=== PATIENT | female | born 1960 | race Caucasian/White ===

== ENCOUNTER 2019-12-28 08:29 | Day surgery (SDC) | payer OTHER, SELFPAY ==
--- NOTE | 2019-12-27 09:51 | P.CONAN_ITS ---
Documented by User: Silvia Eagle 12/27/19 09:51 HPI - Anesthesia Eval Consult details Narrative: 59yo F for [facility] and [facility] Past Medical History Medical History Perrin's esophagus Degenerative joint disease History of posttraumatic stress disorder (PTSD) Hx of esophageal spasm Hx of hidradenitis suppurativa Hx of syncope Surgical History Surgical History History of carpal tunnel release History of esophagogastroduodenoscopy (EGD) History of laminectomy Hx of colonoscopy Hx of shoulder surgery Social History Social History Smoking Status: Current every day smoker Packs Per Day: 0.5 Cigarettes Per Day: 10.0 Smoked in Last 30 Days: Yes Patient Interested in Nicotine Replacement: No Patient Given Instructions on How to Stop Smoking: No Second Hand Smoke Exposure: No Use of substances other than those prescribed or required for medical reasons: No Advance Directives: No Advance Directives Information Provided: Yes Advance Directives on File: No Meds Allergies Allergy/AdvReac Type Severity Reaction Status Date / Time Sulfa (Sulfonamide Allergy Unknown ITCHING Verified 12/28/19 08:39 Antibiotics) [SULFA (SULFONAMIDE ANTIBIOTICS)] Home Medications Medication Instructions Recorded Confirmed Type Arnuity Ellipta 12/24/19 History Cymbalta 12/24/19 History Flonase 12/24/19 History ProAir HFA 12/24/19 History Vitamin C 12/24/19 12/24/19 History atorvastatin 12/24/19 History duloxetine 12/24/19 History fluorouracil 12/24/19 History fluticasone propionate 12/24/19 History gabapentin 12/24/19 History hydroxyzine pamoate 12/24/19 History loratadine 12/24/19 History magnesium 12/24/19 History meloxicam 12/24/19 History multivitamin 12/24/19 History mupirocin 12/24/19 History tizanidine 12/24/19 History trazodone 12/24/19 History vitamin B complex 12/24/19 History Exam Exam Date and Time: December 27, 2019 0951 Assessment and Plan Assessment Anesthesia Assessment: Chart Reviewed Documented by User: Violet Sanchez 12/28/19 09:46 PMFSH Past Medical History Medical History Perrin's esophagus Degenerative joint disease History of posttraumatic stress disorder (PTSD) Hx of esophageal spasm Hx of hidradenitis suppurativa Hx of syncope Surgical History Surgical History History of carpal tunnel release History of esophagogastroduodenoscopy (EGD) History of laminectomy Hx of colonoscopy Hx of shoulder surgery Social History Social History Smoking Status: Current every day smoker Packs Per Day: 0.5 Cigarettes Per Day: 10.0 Smoked in Last 30 Days: Yes Patient Interested in Nicotine Replacement: No Patient Given Instructions on How to Stop Smoking: No Second Hand Smoke Exposure: No Use of substances other than those prescribed or required for medical reasons: No Advance Directives: No Advance Directives Information Provided: Yes Advance Directives on File: No Meds Allergies Allergy/AdvReac Type Severity Reaction Status Date / Time Sulfa (Sulfonamide Allergy Unknown ITCHING Verified 12/28/19 08:39 Antibiotics) [SULFA (SULFONAMIDE ANTIBIOTICS)] Home Medications Medication Instructions Recorded Confirmed Type Arnuity Ellipta 12/24/19 History Cymbalta 12/24/19 History Flonase 12/24/19 History ProAir HFA 12/24/19 History Vitamin C 12/24/19 12/24/19 History atorvastatin 12/24/19 History duloxetine 12/24/19 History fluorouracil 12/24/19 History fluticasone propionate 12/24/19 History gabapentin 12/24/19 History hydroxyzine pamoate 12/24/19 History loratadine 12/24/19 History magnesium 12/24/19 History meloxicam 12/24/19 History multivitamin 12/24/19 History mupirocin 12/24/19 History tizanidine 12/24/19 History trazodone 12/24/19 History vitamin B complex 12/24/19 History Exam Airway Mallampati Class: II TM Dist: >3cm Loose/Missing/Broken Teeth: No Heart: RRR Lungs: CTA Assessment and Plan Assessment Anesthesia Assessment: Anesthesia Plan Discussed and Chart Reviewed Final Anesthetic Review NPO: Yes ASA Class: II Final Preanesthetic Review: Meds/Allgs Chart Reviewed, Consent Obtained/Reviewed and Anes Risks/Benef Reviewed Patient Risk: Intermediate Procedure Risk: Intermediate Anesthetic Plan Anesthetic Plan: MAC: Disposition: Standard PACU
[2019-12-27 16:29] VITALS: BMI 24.6
[2019-12-28 08:52] VITALS: BP 121/85; PULSE 103; RESP 16; TEMP 36.1; O2SAT 100
[2019-12-28] MEDS: Lactated Ringers 1,000 ML 100 ML IVCONT (08:58)
--- NOTE | 2019-12-28 09:20 | MHC.SHP ---
Pre-Procedural Eval Section A The patient is an INPATIENT: No Changes since office visit: No Cold of Flu in the past 2 weeks, No New Medical Problems, No Changes in Medication and No Patient answered all questions The History & Physical has been completed within 30 days and I have reviewed it.: Yes Section B Chief Complaint: Gerd, Change in bowel habit Allergies: Allergies Allergy/AdvReac Type Severity Reaction Status Date / Time Sulfa (Sulfonamide Allergy Unknown ITCHING Verified 12/28/19 08:39 Antibiotics) [SULFA (SULFONAMIDE ANTIBIOTICS)] Plan Patient has been examined and remains a candidate for the planned procedure
[2019-12-28 10:13] VITALS: BP 87/55; PULSE 79; RESP 16; TEMP 36.7; O2SAT 99
--- NOTE | 2019-12-28 10:14 | PM.OP ---
Brief Operative Note Date of procedure: 12/28/19 Pre-op diagnosis: gerd, change in bowels Post-op diagnosis: same (colon polyp) Procedure: EGD/Colon Surgeon: Werner Salas Anesthesia: MAC Estimated blood loss (mL): 5 Pathology: other (antral and egj biopsies, sigmoid biopsies, rectal polyp) Condition: stable Disposition: PACU
[2019-12-28 10:29] VITALS: BP 100/67; PULSE 76; RESP 18; TEMP 36.7; O2SAT 99
--- NOTE | 2019-12-28 11:07 | HO.POSTANES ---
Post Anesthesia Evaluation Post Anesthesia Evaluation Vital Signs: Vital Signs Temp Pulse Resp BP Pulse Ox 12/28/19 10:29 98.0 F 76 18 100/67 99 12/28/19 10:13 98.0 F 79 16 87/55 L 99 12/28/19 08:52 97.0 F 103 H 16 121/85 100 Anesthesia: Monitored Mental Status: Awake Pain Control: Satisfactory Nausea/Vomiting: None Hydration: Adequate Anesthesia-Related Issues: No Anes. Related Issues
--- NOTE | 2019-12-28 13:07 | OP_ITS ---
SURGEON: Werner Salas MD INDICATIONS: 1. Gastroesophageal reflux disease. 2. Colon cancer screening and diarrhea. PREOPERATIVE DIAGNOSIS: POSTOPERATIVE DIAGNOSIS: PROCEDURE PERFORMED: ESTIMATED BLOOD LOSS: COMPLICATIONS: ANESTHESIA: ASSISTANTS: SPECIMENS: PROCEDURES PERFORMED: 1. Upper endoscopy with biopsy. 2. Colonoscopy to the terminal ileum with biopsy. MEDICATIONS: Monitored anesthesia care. PROCEDURE DESCRIPTION: History and physical was performed. The risks and benefits of the procedure were explained to the patient. Informed consent was obtained. The patient was placed in the left lateral decubitus position. The Olympus video gastroscope was introduced into the esophagus, stomach, and duodenum. Examination was performed. The scope was removed. She was repositioned for colonoscopy. Digital rectal exam was performed and was found to be normal. The Olympus pediatric video colonoscope was introduced into the rectum and advanced to the cecum without difficulty. The cecum was identified by transillumination, palpation, and identification of ileocecal valve. Examination was performed and the scope was removed. She tolerated both procedures well and was returned to recovery area in stable condition. FINDINGS: UPPER ENDOSCOPY: Esophagus: The esophagus showed an irregular EG junction, but there was no evidence of esophagitis. Biopsies were obtained from the EG junction. Stomach: The stomach showed no evidence of masses, ulcers, or polyps. The antral biopsies were obtained to evaluate for H. pylori. Duodenum: The bulb and second portion were normal. COLONOSCOPY: The terminal ileum was normal. The visualized colonic mucosa was normal. There was mild sigmoid diverticulosis. The quality of the prep was good. Random sigmoid biopsies were obtained because of the patient's history of diarrhea and the rectum has a less than 5 mm sessile polyp that was removed with biopsy forceps. Retroflexed examination was normal. IMPRESSION: 1. Gastroesophageal reflux disease. 2. Colon polyp. RECOMMENDATION: Follow up the biopsy results. MD PAT Harvey/HELENA / [id number]
== END 2019-12-28 11:20 | disposition home or self-care (01) ==
PROVIDERS: Internal Medicine Gastroenterology; PCP Internal Medicine; Visit Provider Anesthesiology
PROC: (CPT 45380; principal; 2019-12-28 09:30)
DX: R19.4 Change in bowel habit (principal); Z80.0 Family history of malignant neoplasm of digestive organs; Z86.010 Personal history of colon polyps; K62.1 Rectal polyp; K57.30 Diverticulosis of large intestine without perforation or abscess without bleeding; K21.9 Gastro-esophageal reflux disease without esophagitis; Z87.19 Personal history of other diseases of the digestive system; Z87.01 Personal history of pneumonia (recurrent); F17.210 Nicotine dependence, cigarettes, uncomplicated; Z79.899 Other long term (current) drug therapy
CPT/HCPCS: 45380; 43239; 88305; 88342

== ENCOUNTER 2023-09-08 06:58 | Day surgery (SDC) | payer OTHER, SELFPAY ==
[2023-09-03 07:38] VITALS: BMI 28.5
[2023-09-08 07:12] VITALS: BMI 29.3
[2023-09-08 07:17] VITALS: BP 118/71; PULSE 83; RESP 18; TEMP 36.1; O2SAT 98
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
[2023-09-08] MEDS: Tetracaine HCl/PF 0.5% Oph Sol 4 ML DROPS 1 DROP EYE-RIGHT (07:37)
[2023-09-08] MEDS: Lactated Ringers 1,000 ML 50 ML IVCONT (07:37)
[2023-09-08] MEDS: Phenylephrine HCL 2.5% Oph SoL 2 ML BOTTLE 1 DROP EYE-RIGHT ×3 (07:37→07:43)
[2023-09-08] MEDS: Albuterol Sulfate (0.083%) 2.5 MG/3 ML VIAL.NEB INHALE (07:38)
[2023-09-08] MEDS: Ketorolac Tromethamine 0.5% Op 10 ML DROPS 1 DROP EYE-RIGHT ×3 (07:38→07:44)
[2023-09-08] MEDS: Tropicamide 1 % Ophth Sol 3 ML BTL 1 DROP EYE-RIGHT ×3 (07:38→07:44)
[2023-09-08 07:41] VITALS: PULSE 84; RESP 18; O2SAT 98
[2023-09-08] MEDS: Cyclopentolate 1 % Ophth Sol 2 ML DRPBTL 1 DROP EYE-RIGHT ×2 (07:42→07:43)
--- NOTE | 2023-09-08 08:24 | P.PCNO_ITS ---
Ophthalmology Procedure Procedure Date of Service: 09/08/23 Ophthalmology Viscoelastic: Healon Duet Dual Pack Pro Ophthalmology Lenses: IOL Acrysof MP - [id number] (15.5) Procedure Notes: PREOPERATIVE DIAGNOSIS: Decreased visual acuity right eye secondary to cataract POSTOPERATIVE DIAGNOSIS: Same PROCEDURE: Right cataract extraction with intraocular lens insertion SURGEON: Steven Hamilton M.D. ANESTHESIA: Topical/MAC ESTIMATED BLOOD LOSS: None COMPLICATIONS: None After obtaining informed consent, the patient was brought to the operating room suite and placed in the supine position. After adequate sedation per anesthesia, topical drops of Tetracaine were given to the right eye. The eye was then prepped and draped in the usual sterile fashion. The operating room microscope was then positioned over the operative eye and a lid speculum placed. A paracentesis was created. Viscoelastic was then instilled into the anterior chamber. A three plane incision was then created temporally, utilizing a 2.85 mm keratome. Capsulotomy forceps were then utilized to create a circular tear capsulotomy. Hydrodissection and hydrodelineation were carried out until adequate mobilization of the nucleus occurred. Phacoemulsification was then utilized to remove the dense central nu cleus followed by removal of the cortical material utilizing the automated aspiration irrigation unit. Viscoelastic was instilled into the posterior capsular bag followed by placement of a posterior chamber intraocular lens without difficulty. The residual Viscoelastic was then removed utilizing the automated IA machine. The wound was checked and found to be watertight. The patient tolerated the procedure well and the lid speculum was removed. Intracameral injection of Vigamox 0.1 mL followed by a subtenon injection of Kenalog-40 0.2 mL were administered. The patient will be seen in the a.m.
--- NOTE | 2023-09-08 08:24 | MHC.SHP ---
Pre-Procedural Eval Section A - 24 Hr Update-Section A only Date of Service: 09/08/23 The patient is an INPATIENT: No Changes since office visit: No Cold of Flu in the past 2 weeks, No New Medical Problems, No Changes in Medication and No Patient answered all questions The patient has been examined within 24 hours of the surgical procedure. The History & Physical has been completed within 30 days and I have reviewed it.: Yes Section B - Complete if H&P > 30 days Chief Complaint: Age-related nuclear cataract, right eye Allergies: Allergies Allergy/AdvReac Type Severity Reaction Status Date / Time Sulfa (Sulfonamide Allergy Unknown ITCHING Verified 09/08/23 07:09 Antibiotics) [SULFA (SULFONAMIDE ANTIBIOTICS)] trospium Allergy Blurry Verified 09/08/23 07:09 Vision Plan Diagnosis/Plan: Unchanged I have reviewed the history and physical and performed a pertinent physical examination on my patient. No changes have occurred unless specified. Time Spent With Patient Time: Total time managing care of this patient today ____ minutes.
[2023-09-08 08:46] VITALS: BP 127/75; PULSE 80; RESP 16; TEMP 36.1; O2SAT 95
== END 2023-09-08 08:59 | disposition home or self-care (01) ==
PROVIDERS: PCP Internal Medicine; Visit Provider Ophthalmology
PROC: (CPT 66985; principal; 2023-09-08 08:20)
DX: H25.11 Age-related nuclear cataract, right eye (principal); H52.4 Presbyopia; H35.361 Drusen (degenerative) of macula, right eye; H05.20 Unspecified exophthalmos; H04.123 Dry eye syndrome of bilateral lacrimal glands; H11.153 Pinguecula, bilateral; H43.393 Other vitreous opacities, bilateral; M79.7 Fibromyalgia; E78.00 Pure hypercholesterolemia, unspecified; Z79.51 Long term (current) use of inhaled steroids; Z79.899 Other long term (current) drug therapy; Z88.2 Allergy status to sulfonamides; F17.210 Nicotine dependence, cigarettes, uncomplicated
CPT/HCPCS: 66984; J2250; J3010; J3301; V2630

== ENCOUNTER 2023-09-22 07:08 | Day surgery (SDC) | payer OTHER, SELFPAY ==
[2023-09-03 08:09] VITALS: BMI 28.5
[2023-09-22 07:20] VITALS: BP 115/75; PULSE 97; RESP 18; TEMP 36.8; O2SAT 97
[2023-09-22] MEDS: Phenylephrine HCL 2.5% Oph SoL 2 ML BOTTLE 1 DROP EYE-LEFT ×3 (07:22→07:30)
[2023-09-22] MEDS: Tetracaine HCl/PF 0.5% Oph Sol 4 ML DROPS 1 DROP EYE-LEFT (07:22)
[2023-09-22] MEDS: Cyclopentolate 1 % Ophth Sol 2 ML DRPBTL 1 DROP EYE-LEFT ×3 (07:23→07:31)
[2023-09-22] MEDS: Tropicamide 1 % Ophth Sol 3 ML BTL 1 DROP EYE-LEFT ×3 (07:23→07:31)
[2023-09-22] MEDS: Ketorolac Tromethamine 0.5% Op 10 ML DROPS 1 DROP EYE-LEFT ×3 (07:23→07:31)
--- NOTE | 2023-09-22 07:26 | MHC.SHP ---
Pre-Procedural Eval Section A - 24 Hr Update-Section A only Date of Service: 09/22/23 The patient is an INPATIENT: No Changes since office visit: No Cold of Flu in the past 2 weeks, No New Medical Problems, No Changes in Medication and No Patient answered all questions The patient has been examined within 24 hours of the surgical procedure. The History & Physical has been completed within 30 days and I have reviewed it.: Yes Section B - Complete if H&P > 30 days Chief Complaint: Age-related nuclear cataract, left eye Allergies: Allergies Allergy/AdvReac Type Severity Reaction Status Date / Time Sulfa (Sulfonamide Allergy Unknown ITCHING Verified 09/08/23 07:09 Antibiotics) [SULFA (SULFONAMIDE ANTIBIOTICS)] trospium Allergy Blurry Verified 09/08/23 07:09 Vision Plan Diagnosis/Plan: Unchanged I have reviewed the history and physical and performed a pertinent physical examination on my patient. No changes have occurred unless specified. Time Spent With Patient Time: Total time managing care of this patient today ____ minutes.
[2023-09-22] MEDS: Lactated Ringers 500 ML 50 ML IV (07:44)
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
--- NOTE | 2023-09-22 08:21 | HO.PNOPHT ---
Ophthalmology Procedure Procedure Date of Service: 09/22/23 Ophthalmology Viscoelastic: Healon Duet Dual Pack Pro Ophthalmology Lenses: IOL Acrysof MP - [id number] (16.5) Procedure Notes: PREOPERATIVE DIAGNOSIS: Decreased visual acuity left eye secondary to cataract POSTOPERATIVE DIAGNOSIS: Same PROCEDURE: Left cataract extraction with intraocular lens insertion SURGEON: Steven Hamilton M.D. ANESTHESIA: Topical/MAC ESTIMATED BLOOD LOSS: None COMPLICATIONS: None After obtaining informed consent, the patient was brought to the operation room suite and placed in the supine position. After adequate sedation per anesthesia, topical drops of Tetracaine were given to the left eye. The eye was then prepped and draped in the usual sterile fashion. The operating room microscope was then positioned over the operative eye and a lid speculum placed. A paracentesis was created. Viscoelastic was then instilled into the anterior chamber. A three plane incision was then created temporally, utilizing a 2.85 mm keratome. Capsulotomy forceps were then utilized to create a circular tear capsulotomy. Hydrodissection and hydrodelineation were carried out until adequate mobilization of the nucleus occurred. Phacoemulsification was then utilized to remove the dense central nucleus followed by removal of the cortical material utilizing the automated aspiration irrigation unit. Viscoat elastic was instilled into the posterior capsular bag followed by placement of a posterior chamber intraocular lens without difficulty. The residual Viscoat elastic was then removed utilizing the automated IA machine. The wound was check and found to be watertight. The patient tolerated the procedure well and the lid speculum was removed. Intracameral injection of Vigamox 0.1 mL followed by a subtenon injection of Kenalog-40 0.2 mL were administered. The patient will be seen in the a.m.
[2023-09-22 08:45] VITALS: BP 132/75; PULSE 88; RESP 18; TEMP 36.1; O2SAT 97
== END 2023-09-22 09:05 | disposition home or self-care (01) ==
PROVIDERS: PCP Internal Medicine; Visit Provider Ophthalmology
PROC: (CPT 66985; principal; 2023-09-22 07:30)
DX: H25.12 Age-related nuclear cataract, left eye (principal); H52.4 Presbyopia; H11.153 Pinguecula, bilateral; H05.20 Unspecified exophthalmos; H43.393 Other vitreous opacities, bilateral; H04.123 Dry eye syndrome of bilateral lacrimal glands; M79.7 Fibromyalgia; E78.00 Pure hypercholesterolemia, unspecified; J45.30 Mild persistent asthma, uncomplicated; B00.9 Herpesviral infection, unspecified; F17.210 Nicotine dependence, cigarettes, uncomplicated; F14.11 Cocaine abuse, in remission; Z79.51 Long term (current) use of inhaled steroids; Z79.899 Other long term (current) drug therapy; Z88.2 Allergy status to sulfonamides
CPT/HCPCS: 66984; J2250; J3010; J3301; V2630

== ENCOUNTER 2024-10-20 11:58 | Day surgery (SDC) | payer MEDICARE, MEDICAID, SELFPAY ==
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
--- OUTSIDE RECORDS SUMMARY | 2024-10-13 10:59 | XMS_ITS | Clinical Summary ---
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 [address] [place] [address], * Cervical Cancer Screening: HPV (03/05/2021) [facility] Cervical Cancer Screening: HPV Negative, Abstracted Historical Provider HEALTH MAINTENANCE Final Result * Hepatitis C Screening (06/10/2013) [facility] Hepatitis C Screening Abstracted [facility] Provider HEALTH MAINTENANCE Final Result * Colonoscopy (09/08/2012) [facility] Colonoscopy No Interpretation , Abstracted Anatomical Region Laterality Modality Other Historical Provider HEALTH MAINTENANCE Final Result from Last 3 Months or Most Recently Relevant to Health Maintenance Insurance MEDICARE MEDICAID [place] [employer] Care Teams Linen Clerk Relationship Specialty Start Date End Date Jared Pulido MD [address] [place] [id number] PCP - General 11/14/22
--- OUTSIDE RECORDS SUMMARY | 2024-10-13 10:59 | XMS_ITS | Clinical Summary ---
Author Organization [employer] Address [address] [place] [address] Care Team Providers Care Director Sports Name Role Phone Unavailable Primary Care Provider Unavailabl e Social History Tobacco Use Types Packs/Day Years Used Date Smoking Tobacco: Never Assessed Comments Unknown Sex and Gender Information Value Date Recorded Sex Assigned at Female 12/31/2021 10:31 AM EDT Legal Sex Female 10:31 AM EDT Gender Identity Not on file Sexual Orientation Not on file Plan of Treatment Health Maintenance Due Date Last Done Comments CT Colonography 1959 Colonoscopy 1959 Colorectal Cancer Screening 1959 Depression Screening 1959 FIT DNA/Cologuard 1959 FIT 1959 FOBT 1959 Sigmoidoscopy 1959 Alcohol/Substance Use Screening 1971 Tobacco Screening 1971 DTaP/Tdap/Td Vaccines (1 - Tdap) 06/13/1978 Pap Smear 06/13/1980 Cervical Cancer Screening 06/13/1989 HPV/Cotest 06/13/1989 Mammogram 1999 Pneumococcal Vaccine: 50+ Ye ars (1 of 1 - PCV) 06/13/2009 Zoster Vaccines (1 of 2) 06/13/2009 COVID-19 Vaccine ( - 2023-2 5 season) 2023 Influenza Vaccine (#1) 2024 RSV Patients and Pa tients Aged 60 years or older (1 - 1-dose 75+ series) 06/13/2034 HIB Vaccines Aged Out No longer eligi [...] patient's age to complete this topic Meningococcal Vaccine Aged Out No geraldo may eligible based on patient's age to complete this topic RSV under 20 months Aged Out No longe r eligible based on patient's age to complete this topic Rotavirus Vaccines Aged Out No longer eligible based on patient's age to complete this topic
--- OUTSIDE RECORDS SUMMARY | 2024-10-13 10:59 | XMS_ITS ---
Author Name [facility] Organization Unknown Care Team Organization Name Specialty Phone Email Start Date End Da te [facility] Linda Cardenas Primary [facility] 01/08/2022 4
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
[2024-10-20 12:26] VITALS: BP 129/77; PULSE 92; RESP 14; TEMP 36.6; O2SAT 100; BMI 28.0
[2024-10-20] MEDS: Lactated Ringers 1,000 ML 100 ML IVCONT (12:37)
--- NOTE | 2024-10-20 13:30 | MHC.SHP ---
Pre-Procedural Eval Section A - 24 Hr Update-Section A only Date of Service: 10/20/24 The patient is an INPATIENT: No Changes since office visit: No Cold of Flu in the past 2 weeks, No New Medical Problems, No Changes in Medication and No Patient answered all questions The patient has been examined within 24 hours of the surgical procedure. The History & Physical has been completed within 30 days and I have reviewed it.: Yes Section B - Complete if H&P > 30 days Chief Complaint: Perrin's esophagus without dysplasia,screening Allergies: Allergies Allergy/AdvReac Type Severity Reaction Status Date / Time Sulfa (Sulfonamide Allergy Unknown ITCHING Verified 10/20/24 12:17 Antibiotics) (SULFA (SULFONAMIDE ANTIBIOTICS)) trospium Allergy Blurry Verified 10/20/24 12:17 Vision Plan I have reviewed the history and physical and performed a pertinent physical examination on my patient. No changes have occurred unless specified. Time Spent With Patient Time: Total time managing care of this patient today ____ minutes.
[2024-10-20 14:27] VITALS: BP 138/76; PULSE 76; RESP 16; TEMP 36.8; O2SAT 98
--- NOTE | 2024-10-20 14:27 | P.BOP_ITS ---
Brief Operative Note Date of Service: 10/20/24 Pre-op diagnosis: screening Barretts Post-op diagnosis: same Procedure: egd colon Surgeon: Werner Salas MD Was an Senior Accounting Specialist used for this Procedure?: No Estimated blood loss (mL): 2 Pathology: none sent Condition: stable Disposition: PACU
[2024-10-20 14:42] VITALS: BP 140/72; PULSE 75; RESP 17; TEMP 36.8; O2SAT 98
--- NOTE | 2024-10-21 01:10 | OP_ITS ---
DATE OF SERVICE: 10/20/2024 SURGEON: Werner Salas MD INDICATIONS: 1. Perrin esophagus. 2. Colon cancer screening. PREOPERATIVE DIAGNOSIS: POSTOPERATIVE DIAGNOSIS: PROCEDURE PERFORMED: Upper endoscopy with biopsy, colonoscopy to the terminal ileum with snare polypectomy. ESTIMATED BLOOD LOSS: COMPLICATIONS: ANESTHESIA: Monitored anesthesia care. ASSISTANTS: SPECIMENS: DESCRIPTION OF PROCEDURE: A history and physical were performed. The risks and benefits of the procedure were explained to the patient, and informed consent was obtained. The patient was placed in the left lateral decubitus position. The Olympus video gastroscope was introduced into the esophagus, stomach, and duodenum. Examination was performed. The scope was removed. She was repositioned for colonoscopy. A digital rectal exam was performed, and was found to be normal. The Olympus pediatric video colonoscope was introduced into the rectum and advanced to the cecum. The cecum was identified by transillumination, palpation, and identification of ileocecal valve. Examination was performed. The scope was removed. She tolerated both procedures well and was returned to the recovery area in stable condition. FINDINGS: Upper endoscopy: 1. Esophagus: The esophagus showed an irregular EG junction. This was biopsied. There were no raised lesions or ulcerated areas. 2. Stomach: The stomach showed no evidence of masses, ulcers, or polyps. 3. Duodenum: The bulb and 2nd portion were normal. Colonoscopy: The terminal ileum was examined and appeared normal. The visualized colonic mucosa was normal. The quality of the prep was good. Multiple colonic polyps were identified. These were removed using a hot snare. These were located at the cecum, 45 cm and 35 cm. There was mild diverticulosis. Retroflexed examination showed some small internal hemorrhoids. The quality of the prep was good. IMPRESSION: 1. Perrin esophagus. 2. Colon polyps. RECOMMENDATION: Follow up the biopsy results. MD PAT Harvey/HELENA / [phone]
== END 2024-10-20 15:08 | disposition home or self-care (01) ==
PROVIDERS: PCP Internal Medicine; Visit Provider Internal Medicine Gastroenterology
PROC: (CPT 45385; principal; 2024-10-20 13:00)
DX: Z12.11 Encounter for screening for malignant neoplasm of colon (principal); D12.0 Benign neoplasm of cecum; D12.5 Benign neoplasm of sigmoid colon; K57.30 Diverticulosis of large intestine without perforation or abscess without bleeding; K64.8 Other hemorrhoids; Z80.0 Family history of malignant neoplasm of digestive organs; K22.70 Barrett's esophagus without dysplasia; K22.89 Other specified disease of esophagus; F17.210 Nicotine dependence, cigarettes, uncomplicated; J45.909 Unspecified asthma, uncomplicated; E78.5 Hyperlipidemia, unspecified; Z79.02 Long term (current) use of antithrombotics/antiplatelets; Z79.899 Other long term (current) drug therapy
CPT/HCPCS: 45385; 43239; 88305; 88313; 88342; J2003; J2704; J3010

== ENCOUNTER 2024-10-21 21:52 | Inpatient (IN) | payer MEDICARE, MEDICAID, SELFPAY ==
--- NOTE | ~2024-10-21 | CT_ITS ---
CLINICAL HISTORY: lower abd pain, GIB s p colonoscopy yesterday CT angiography abdomen and pelvis. 3D Postprocessing. Comparison: None provided Findings: There is minimal bibasilar atelectasis. There are several tiny hepatic cysts. The gallbladder, pancreas, spleen, and adrenal glands are unremarkable. There are a few small renal cysts. Kidneys are otherwise unremarkable. There is no evidence of active GI bleeding. There is diverticulosis in the left hemicolon. The appendix is normal. Stomach and small bowel are unremarkable. There is no free fluid or free air. The aorta is normal in diameter and patent without stenosis. Aortic branch vessels are patent without stenosis. There are no enlarged lymph nodes. There is a calcified degenerated subserosal fibroid. The bladder is unremarkable. There are degenerative changes in the lumbar spine. There is no fracture or suspicious lytic or sclerotic lesion. IMPRESSION: 1. No evidence of active GI bleeding. 2. Colonic diverticulosis. This document has been electronically signed by: Hilario Guevara MD on 10/22/2024 01:01:56
[2024-10-21 21:58] VITALS: BP 136/95; PULSE 98; RESP 20; TEMP 36.9; O2SAT 100; BMI 28.0
--- OUTSIDE RECORDS SUMMARY | 2024-10-21 22:33 | XMS_ITS | Clinical Summary ---
Author Organization [facility] Address [address] [place] [address] Phone Care Team Providers Care Network Communications Engineer Name Role Phone Jared Pulido MD Primary Care Provider Allergies Active Allergy Reactions Criticality Noted Date [...] Episode of recurrent major d epressive disorder (CMS/[facility] V24) 05/29/2020 Microscopic hematuria 06/25/2017 Mild persistent asthma without complication 11/02 Mixed hyperlipidemia 08/11/2013 Tubular adenoma of colon 08/11/2013 Overview (03/02/2024): Follows with Dr Dominguez-had colonsocopy inJuly 2012 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 Encounters Date Type Department Care Team Description 10/06/2024 10:00 AM EDT Office Visit Adult Medicine [address] [phone] Jared Pulido MD Atypical mole (Primary Dx); Fibromyalgia; Chronic left-sided low back pain with left-sided sciatica; Perrin's esophagus without dysplasia; Tubular adenoma of colon; Mild persistent asthma without complication; Mixed hyperlipidemia 10/05/2024 8:49 AM EDT - 10/05/2024 11:59 PM EDT Hospital Encounter [facility] CT Scan [address] [place] [address] Encounter for screening for malignant neoplasm of respiratory organs; Nicotine dependence, cigarettes, uncomplicated Discharge Disposition: Home or Self Care 09/15/2024 Telephone Adult Medicine [facility] [address] [place] [phone] Jared Pulido MD Immunizations 09/10/2024 Telephone Lung Screening Program - [place] [address] [facility] [address] [place] [address] Salina Johnson [place] Appointment (1st [...] COMMENT: right hand done SHOULDER SURGERY PROCEDURE: [facility] UNLISTED PROCEDURE SHOULDER; COMMENT: calcified bursa with [...] phagus; COMMENT: follows with Dr Salas in [place] Fibromyalgia DX:Fibromyalgia Hiatal hernia DX:Hiatal hernia H/O hidradenitis suppurativa DX: H/O hidradenitis suppurativa; COMMENT: has had surgeries for hidradenitis in the axilla and groins PTSD (post-traumatic stress disorder) DX:PTSD (post-traumatic stress disorder) Major depression DX:Major depres elizabeth; COMMENT: follows with a psychiatrist Dr dre Hicks, at [facility] Anxiety DX:Anxiety [...] Maternal Grandmother Hypertension Mother CHF,kidney canc er, [place]- in her 75 Rheum arthritis Mother's side [...] care for your loved ones. For example, childcare director or elderly care for an older adult? [...] 9:15 AM EST Office Visit Adult Medicine [address] [phone] Jared Pulido MD [address] [place] [phone] Health Maintenance Due Date Last Done Comments [...] malignancy and prevalence can be found at: [employer] Committee on Lung-RADS?. Lung- RADS Assessment Categories 2021. Available at [email or web address]. -------- FINAL REPORT -------- Dictated By: Andie Cr Dictated Date: 10/07/2024 16:43 ET Assigned Physician: Andie Cr Reviewed and Electronically Signed By: Andie Cr Signed Date: 10/07/2024 16:56 ET Workstation ID: [id number] Transcribed By: Self Edit Transcribed Date: 10/07/2024 [...] of malignancy andprevalence can be found at: [employer] Committee onLung-RADS?. Lung-RADS Assessment Categories 2021. Available [email or web address]. -------- FINAL REPORT -------- Dictated By: Andie Cr Dictated Date: 10/07/2024 16:43 ET Assigned Physician: Andie Cr Reviewed and Electronically Signed By: Andie Cr Signed Date: 10/07/2024 16:56 ET Workstation ID: [id number] Transcribed By: Self Edit Transcribed Date: 10/07/2024 16:46 ET us Aleksey Delgado MD IMG CT PROCEDURES Final Result * Interferon gamma interpretation (09/16/2024 10:15 AM EDT) Quantiferon Plus Interpretation Negative Negative LAB CHEMISTRY METHOD 09/17/2024 10:27 AM EDT [facility] Blood Venous blood specimen / Unknown Venipuncture / Unknown 09/16/2024 10:15 AM EDT 09/16/2024 10:15 AM EDT us Jared Pulido MD LAB BLOOD ORDERABLES Final Result [facility] [address] [place] [address], [place] [phone] * Interferon gamma antigen 2 (09/16/2024 10:15 AM EDT) Blood Venous blood specimen / Unknown Venipuncture / Unknown 09/16/2024 10:15 AM EDT 09/16/2024 10:15 AM EDT Jared Pulido MD LAB BLOOD ORDERABLES Final Result [facility] [address] [place] [address], * Interferon gamma antigen 1 (09/16/2024 10:15 AM EDT) Blood Venous blood specimen / Unknown Venipuncture / Unknown 09/16/2024 10:15 AM EDT 09/16/2024 10:15 AM EDT Jared Pulido MD LAB BLOOD ORDERABLES Final Result [facility] [address] [place] [address], * Interferon gamma mitogen (09/16/2024 10:15 AM EDT) Blood Venous blood specimen / Unknown Venipuncture / Unknown 09/16/2024 10:15 AM EDT 09/16/2024 10:15 AM EDT Jared Pulido MD LAB BLOOD ORDERABLES Final Result [facility] [address] [place] [address], * Interferon gamma NIL (09/16/2024 10:15 AM EDT) Blood Venous blood specimen / Unknown Venipuncture / Unknown 09/16/2024 10:15 AM EDT 09/16/2024 10:15 AM EDT us Jared Pulido MD LAB BLOOD ORDERABLES Final Result [facility] [address] [place] [address], [place] [phone] * MG Mammo Digital Screening w Viktor bilat (05/31/2024 7:25 PM EDT) Anatomical Region Laterality Modality Breast Bilateral Mammography 06/01/2024 12:5 1 PM EDT Impressions 06/01/2024 12:55 PM EDT No mammographic evidence for malignancy. BI-RADS CATEGORY: 1 - NEGATIVE RECOMMENDATION: Screening bilateral mammogram is recommended in 1 year. Mammo Location: [facility], [address] [place] [address], [phone], . -------- FINAL REPORT -------- Dictated By: Alem Lamb Dictated Date: 06/01/2024 12:51 ET Assigned Physician: Alem Lamb Reviewed and Electronically Signed By: Alem Lamb Signed Date: 06/01/2024 12:55 ET Workstation ID: [id number] Transcribed By: Self Edit Transcribed Date: 06/01/2024 [...] is recommended in 1 year. Mammo Location: [facility], [address] [place] [address], [id number], . -------- FINAL REPORT -------- Dictated By: Alem Lamb Dictated Date: 06/01/2024 12:51 ET Assigned Physician: Alem Lamb Reviewed and Electronically Signed By: Alem Lamb Signed Date: 06/01/2024 12:55 ET Workstation ID: [id number] Transcribed By: Self Edit Transcribed Date: 06/01/2024 12:51 ET us Jared Pulido MD IMG BI PROCEDURES Final Res ult * (ABNORMAL) Lipid panel with reflex to direct LDL (05/26/2024 8:15 AM EDT) Cholesterol 284(H) 0 - 200 mg/dL LAB CHEMISTRY METHOD 05/26/2024 11:34 AM EDT [facility] Triglycerides 236(H) 0 - 150 mg/dL LAB CHEMISTRY METHOD 05/26/2024 11:34 AM EDT [facility] HDL 47 >=40 mg/dL LAB CHEMISTRY METHOD 05/26/2024 11:34 AM EDT [facility] LDL Calculated 190(H) 0 - 100 mg/dL LAB CHEMISTRY METHOD 05/26/2024 11:34 AM T [facility] VLDL Cholesterol Shashi 47.2 mg/dL LAB CHEMISTRY METHOD 05/26/2024 11:34 AM EDT [facility] Non HDL Chol. (LDL+VLDL) 237(H) <145 mg/dL LAB CHEMISTRY METHOD 05/26/2024 11:34 AM EDT [facility] Chol/HDL Ratio 6.0(H) 0.0 - 4.4 LAB CHEMISTRY METHOD 05/26/2024 11:34 AM EDT [facility] Blood Venous blood specimen / Unknown Venipuncture / Unknown 05/26/2024 8:15 AM EDT 05/26/2024 8:15 AM EDT Rita ARORA LAB BLOOD ORDERABLES Fin al Result [facility] [address] [place] [address], * Cervical Cancer Screening: HPV (03/05/2021) [facility] Cervical Cancer Screening: HPV Negative, Abstracted Historical Provider HEALTH MAINTENANCE Final Result * Hepatitis C Screening (06/10/2013) [facility] Hepatitis C Screening Abstracted [facility] Provider HEALTH MAINTENANCE Final Result * Colonoscopy (09/08/2012) [facility] Colonoscopy No Interpretation , Abstracted Anatomical Region Laterality Modality Other Historical Provider HEALTH MAINTENANCE Final Result from Last 3 Months or Most Recently Relevant to Health Maintenance Insurance MEDICARE MEDICAID [place] [employer] Care Teams Network Communications Engineer Relationship Specialty Start Date End Date Jared Pulido MD [address] [place] [id number] PCP - General 11/14/22
--- OUTSIDE RECORDS SUMMARY | 2024-10-21 22:33 | XMS_ITS | Clinical Summary ---
Author Organization [employer] Address [address] [place] [address] Care Team Providers Care Swamper Name Role Phone Unavailable Primary Care Provider [...]
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
[2024-10-21] MEDS: Lactated Ringers 1,000 ML 999 ML IV (23:04)
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
[2024-10-21 23:27] LABS: MANUAL DIFF FLAG NO
[2024-10-21 23:29] LABS: OBS Int Ctl Valid YES; OBS1 POSITIVE (NEGATIVE)
[2024-10-21 23:30] LABS: Hematocrit 34.8 % (37.0-47.0); Hemoglobin 12.0 g/dl (12.0-16.0); Imm Gran Abs Auto 0.04 X10*3/uL (0.00-0.03); Imm Gran Pct Auto 0.4 % (0.0-0.4); Lymphocytes Absolute Auto 3.1 X10*3/uL (1.2-4.9); Mean Corpuscular HGB Conc 34.5 g/dl (31.0-35.0); Mean Corpuscular Hemoglobin 32.1 pg (27.0-33.0); Mean Corpuscular Volume 93.0 fL (80.0-98.0); NRBC Abs Auto 0.000 X10*3/uL (0.0-0.012); NRBC Pct Auto 0.0 /100WBC (0.0-0.2); Platelet Count 314 X10*3/uL (160-400); Red Blood Count 3.74 X10*6/uL (4.20-5.50); White Blood Count 10.8 X10*3/uL (4.8-10.8)
[2024-10-21 23:44] LABS: Alanine Aminotransferase 19 U/L (0-31); Albumin Level 3.9 g/dL (3.5-5.0); Alkaline Phosphatase 82 U/L (39-117); Anion Gap 13 (12-20); Aspartate Amino Transferase 19 U/L (5-31); Blood Urea Nitrogen 15 mg/dL (9-16); Calcium 8.9 mg/dL (8.4-10.2); Carbon Dioxide 21 mmol/L (22-29); Chloride 112 mmol/L (96-108); Creatinine Clr Calc Pharmacy 68.3; Estimated Glomerular Filt Rate > 60; Potassium 3.8 mmol/L (3.3-5.1); Sodium 142 mmol/L (135-145); Total Protein 5.7 g/dL (6.5-8.0)
[2024-10-22] VITALS (7 sets, daily range): BP systolic 123–150; BP diastolic 62–78; PULSE 71–80; RESP 14–18; TEMP 36.4–37; O2SAT 95–99; BMI 29.3
[2024-10-22] MEDS: iohexoL 350 MG/ML 100 ML INFUS..BTL 85 ML IV (00:32)
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
[2024-10-22 05:55] LABS: MANUAL DIFF FLAG NO
[2024-10-22 05:58] LABS: Hematocrit 37.3 % (37.0-47.0); Hemoglobin 12.6 g/dl (12.0-16.0); Imm Gran Abs Auto 0.03 X10*3/uL (0.00-0.03); Imm Gran Pct Auto 0.3 % (0.0-0.4); Lymphocytes Absolute Auto 2.8 X10*3/uL (1.2-4.9); Mean Corpuscular HGB Conc 33.8 g/dl (31.0-35.0); Mean Corpuscular Hemoglobin 31.6 pg (27.0-33.0); Mean Corpuscular Volume 93.5 fL (80.0-98.0); NRBC Abs Auto 0.000 X10*3/uL (0.0-0.012); NRBC Pct Auto 0.0 /100WBC (0.0-0.2); Platelet Count 300 X10*3/uL (160-400); Red Blood Count 3.99 X10*6/uL (4.20-5.50); White Blood Count 9.1 X10*3/uL (4.8-10.8)
[2024-10-22 06:11] LABS: Anion Gap 13 (12-20); Blood Urea Nitrogen 13 mg/dL (9-16); Calcium 8.8 mg/dL (8.4-10.2); Carbon Dioxide 23 mmol/L (22-29); Chloride 110 mmol/L (96-108); Creatinine Clr Calc Pharmacy 70.2; Estimated Glomerular Filt Rate > 60; Potassium 3.9 mmol/L (3.3-5.1); Sodium 142 mmol/L (135-145)
--- NOTE | 2024-10-22 08:45 | PHA.MEDREC ---
Addendum entered by Kayleigh Guan RPh 10/22/24 08:52: Reviewed by [facility] Original Note: Pharmacy Consult ? Medication Reconciliation Pharmacy has completed the medication reconciliation. Patient was able to confirm all of her medications. Patient states she is no longer taking Hydroxyzine 25 mg, Mupirocin oint, and Valacyclovir 500 mg. Patient last had her medications 10/19/24
--- NOTE | 2024-10-22 10:56 | MHC.CM.PN ---
IMM 10/22/24, Pt. lives alone, she does not use home health services. PCP is confirmed: Jared Pulido, HCP is her dtr or sister, copy requested. For DME, she has grab bars in the shower. She is able to arrange transportation home at [place], DCP: home, self care, CM to follow for DC needs.
[2024-10-22] MEDS: 0.9 % Sodium Chloride Flush 3 ML SYRINGE IVFLUSH ×3 (11:55→22:47)
--- NOTE | 2024-10-22 15:57 | P.PNIM_ITS ---
Subjective Subjective Date of Service: 10/22/24 Interval History: Patient complains that she has lower back pain, due to the position she is lying in. She endorses thirst and hunger, she is currently NPO. She has had no recurrent bleeding so far. Understands that we are closely monitoring her. Review of Systems Review of Systems: Yes all other systems are reviewed and are negative Physical Exam 2 Exam: Exam: General: A&O x3, oriented to time place person and situation, comfortable, no pain Cardiac: S1, S2 auscultated with no S3/4, no MRG. Well perfused. Respiratory: Normal breath sounds auscultated throughout all lung zones, without wheezing, rales. Normal rate. GI/ : No abdominal pain on palpation, no masses or distentions. MSK: Normal ambulation without pain at bony prominences or musculature Neurological: Normal neurological examination on overview, without obvious CN II-XII abnormalities. Vital Signs: Vital Signs: Last Vital Signs Temp 98.4 F 10/22/24 14:23 Pulse 74 10/22/24 14:23 Resp 18 10/22/24 14:23 BP 142/78 H 10/22/24 14:23 Pulse Ox 99 10/22/24 14:23 O2 Del Method Room Air 10/22/24 14:23 BMI result Body Mass Index 28.0 Objective Data Active Medications Acetaminophen (Acetaminophen 325 Mg Tablet) 650 mg PO Q6H PRN PRN Reason: Pain, Mild 1-3,fever,headache Last Admin: 10/22/24 14:29 Dose: 650 mg Documented By: SRAVANI Albuterol/Ipratropium (Albuterol/Iprat 2.5/0.5mg 3 Ml Ampul.Neb) 3 ml INHALE Q4H PRN PRN Reason: Shortness of Breath/Wheezing Calcium Carbonate (Calcium Carbonate 750 Mg Tab.Chew) 750 mg PO Q4H PRN PRN Reason: Heartburn Magnesium Hydroxide (Milk Of Magnesia 30 Ml Oral.Susp) 30 ml PO DAILY PRN PRN Reason: Constipation Melatonin (Melatonin 3 Mg Tablet) 6 mg PO BEDTIME PRN PRN Reason: Insomnia Ondansetron HCl (Ondansetron Hcl 4 Mg/2 Ml Vial) 4 mg IVPUSH Q8H PRN PRN Reason: Nausea and Vomiting Last Admin: 10/22/24 14:27 Dose: 4 mg Documented By: SRAVANI Pantoprazole Sodium (Pantoprazole Sodium 40 Mg/10 Ml Vial) 40 mg IVPUSH BID@0630,1630 [facility] Last Admin: 10/22/24 06:30 Dose: 40 mg Documented By: PRICILLA Sodium Chloride (0.9 % Sodium Chloride Flush 3 Ml Syringe) 3 ml IVFLUSH QSHIFT [facility] Last Admin: 10/22/24 11:55 Dose: 3 ml Documented By: ELIZ-THOMAS Labs 10/22/24 05:32 10/22/24 05:32 Labs: Laboratory Results - last 24 hr 10/21/24 10/21/24 10/22/24 23:17 23:20 05:32 MCV 93.0 93.5 MCH 32.1 31.6 MCHC 34.5 33.8 RDW 12.9 12.8 Plt Count 314 300 MPV 9.0 L 9.1 L Immature Gran % (Auto) 0.4 0.3 Neut % (Auto) 62.6 59.8 Lymph % (Auto) 28.7 30.9 [place] % (Auto) 5.9 6.4 Eos % (Auto) 2.1 2.3 Baso % (Auto) 0.3 0.3 Lymph # (Auto) 3.1 2.8 [place] # (Auto) 0.6 0.6 Eos # (Auto) 0.2 0.2 Baso # (Auto) 0.0 0.0 Abs Immat Gran (auto) 0.04 H 0.03 Absolute Neuts (auto) 6.8 5.4 Absolute Nucleated RBC 0.000 0.000 Nucleated RBC % (auto) 0.0 0.0 Anion Gap 13 13 Estim Creat Clear Calc 68.3 70.2 Estimated GFR > 60 > 60 Random Glucose 105 101 Lactic Acid 1.8 Calcium 8.9 8.8 Total Bilirubin 0.2 AST 19 ALT 19 Alkaline Phosphatase 82 Total Protein 5.7 L Albumin 3.9 Stool Occult Blood POSITIVE Blood Type A Positive Antibody Screen NEGATIVE Assessment and Plan (1) Bright red rectal bleeding: Status: Acute (2) Abdominal pain: Status: Acute Plan 64-year-old female, PMH Perrin's esophagus, EtOH (abstinent 2011), substance use disorder cocaine (abstinent 2010), COPD, lumbar DJD on meloxicam, hidradenitis suppurativa, genital herpes, recent colonoscopy/EGD 10/20 with polypectomy, presenting with BRBPR, admitted with GI bleeding. Acute GI bleed Colonoscopy/EGD with polypectomy 10/20 Dr. Salas Perrin's esophagus Endoscopy revealed irregular EG junction, consistent with Perrin's esophagus (biopsied). Multiple colonic polyps identified status post polypectomy. Small internal hemorrhoids. Presents with GI bleed 2 days post. Possible bleeding post biopsies versus polypectomy versus gastritis induced from meloxicam use. PLAN - GI consulted - omeprazole IV b.i.d. - hold meloxicam - hold off DVT prophylaxis - monitor H&H COPD, no home O2 Patient defers nicotine patch and gum DuoNebs p.r.n. Breo Ellipta HSV genital Last outbreak 1 week prior around the buttocks Valacyclovir p.r.n. Fibromyalgia Continue gabapentin Continue duloxetine Hyperlipidemia Continue statin [employer] - VTE: SCDs. Hold heparin in setting of GI bleed - CODE STATUS: Full code - DIET: NPO currently - advance to clear liquid diet Total time managing care of this patient today: 35 minutes. Quality Stroke Does the patient have a stroke diagnosis?: No Reason for No Anti-thrombotic by Day Two: Contraindicated VTE Prior VTE?: No VTE Risk Level:: Medical - moderate - high VTE Device Contraindication: N/A - Device Ordered VTE Drug Contraindication: Treatment Not Indicated
--- NOTE | 2024-10-22 23:11 | CONS_ITS ---
DATE OF SERVICE: 10/22/2024 REFERRING PHYSICIAN: Urszula Gonzáles NP REASON FOR CONSULTATION: GI bleeding. HISTORY OF PRESENT ILLNESS: The patient is a 64-year-old woman, who was admitted to the hospital after presenting to the emergency room with passage of bright red blood and clots per rectum. Symptoms began after her colonoscopy the night of admission. She had some crampy abdominal pain and did not take any NSAIDs or anti-inflammatory medications. She did tolerate a liquid diet at home, but had first passage of stool and clots and then just blood. She was evaluated in the emergency department with lab work and imaging studies. Hematocrit on admission was 34.8 and is improved at 37.3 today. Imaging was undertaken with an abdominopelvic CT scan, which showed no evidence of active GI bleeding. Her colonoscopy was done on October 21. She also had an endoscopy because of a history of Perrin esophagus. On the colonoscopy, 3 polyps were removed using a hot snare and mild diverticulosis was identified. Pathology on the polyps showed tubular adenomas and biopsies from her upper endoscopy, which was done because of Perrin esophagus showed chronic active inflammation, but was negative for intestinal metaplasia. We reviewed this today. PAST MEDICAL HISTORY: 1. Recent colonoscopy and endoscopy as above. 2. Back pain. 3. Arthritis. 4. Asthma. CURRENT MEDICATIONS: Her current medication list is reviewed in the chart. ALLERGIES: SULFA AND TROSPIUM. FAMILY HISTORY: This is reviewed with the patient and is noncontributory. SOCIAL HISTORY: There is no current substance abuse. REVIEW OF SYSTEMS: SKIN: No pruritus. HEENT: Negative. CARDIOPULMONARY: No shortness of breath or chest pain. GASTROINTESTINAL: As above. GENITOURINARY: Negative. NEUROPSYCHIATRIC: Negative. PHYSICAL EXAMINATION: GENERAL: Shows a pleasant female, lying comfortably in bed. VITAL SIGNS: Reviewed in electronic medical record and are stable. SKIN: Anicteric. HEENT: Shows no scleral icterus. NECK: Without lymphadenopathy or thyromegaly. LUNGS: Clear. HEART: Shows a regular rate and rhythm S1, S2. No murmur. ABDOMEN: Soft with some mild epigastric tenderness to palpation. Bowel sounds are present. No organomegaly is noted. EXTREMITIES: Without edema. LABORATORY DATA AND IMAGING STUDIES: Reviewed. IMPRESSION: Rectal bleeding. Her rectal bleeding is likely consistent with a post polypectomy bleed. Another possible cause could be diverticular disease. At this time, she has no evidence on CT scanning of active GI bleeding and her hematocrit has actually improved from admission. She has not required blood transfusion. I would treat her symptomatically with a proton pump inhibitor and follow her H and H. She can start on clear liquids and if she tolerates this, her diet can be gradually advanced and she can be discharged within the next 24 hours. Thanks for asking me to see her. I will follow her in the hospital with you. MD PAT Harvey/HELENA / [phone]
[2024-10-23] VITALS (7 sets, daily range): BP systolic 115–139; BP diastolic 63–78; PULSE 68–84; RESP 16–17; TEMP 36.1–36.8; O2SAT 94–97
[2024-10-23] MEDS: Fluticasone/Vilanterol 100/25 BLST.W.DEV 1 PUFF INHALE (07:29)
[2024-10-23] MEDS: 0.9 % Sodium Chloride Flush 3 ML SYRINGE IVFLUSH ×3 (09:39→21:14)
--- NOTE | 2024-10-23 10:32 | PC.NURSE ---
Pt evaluated by this am , Plan : advanced diet to clear liquids ,
--- NOTE | 2024-10-23 13:07 | HO.PM.IMPN ---
Subjective Subjective Date of Service: 10/23/24 Interval History: Feels much better today. She had no episodes of bloody bowel motions yesterday. No nausea/vomiting. The patient says that she is ravenous and very hungry. Discussed with gastroenterology-appropriate to advance diet. Review of Systems Review of Systems: Yes all other systems are reviewed and are negative Physical Exam Exam: Exam: General: A&O x3, oriented to time place person and situation, comfortable, no pain Cardiac: S1, S2 auscultated with no S3/4, no MRG. Well perfused. Respiratory: Normal breath sounds auscultated throughout all lung zones, without wheezing, rales. Normal rate. GI/ : No abdominal pain on palpation, no masses or distentions. MSK: Normal ambulation without pain at bony prominences or musculature Neurological: Normal neurological examination on overview, without obvious CN II-XII abnormalities. Vital Signs: Vital Signs: Last Vital Signs Temp 97.6 F 10/23/24 11:42 Pulse 79 10/23/24 11:42 Resp 17 10/23/24 11:42 BP 122/65 10/23/24 11:42 Pulse Ox 96 10/23/24 11:42 O2 Del Method Room Air 10/23/24 11:42 BMI result Body Mass Index 29.3 Objective Data Active Medications Acetaminophen (Acetaminophen 325 Mg Tablet) 650 mg PO Q6H PRN PRN Reason: Pain, Mild 1-3,fever,headache Last Admin: 10/23/24 05:09 Dose: 650 mg Documented By: FAVIAN Albuterol/Ipratropium (Albuterol/Iprat 2.5/0.5mg 3 Ml Ampul.Neb) 3 ml INHALE Q4H PRN PRN Reason: Shortness of Breath/Wheezing Atorvastatin Calcium (Atorvastatin Calcium 10 Mg Tablet) 10 mg PO BEDTIME BEAU Calcium Carbonate (Calcium Carbonate 750 Mg Tab.Chew) 750 mg PO Q4H PRN PRN Reason: Heartburn Cyclobenzaprine HCl (Cyclobenzaprine Hcl 10 Mg Tablet) 10 mg PO TID PRN PRN Reason: Muscle Spasm Duloxetine HCl (Duloxetine Hcl 60 Mg Capsule.Dr) 60 mg PO BEDTIME BEAU Last Admin: 10/22/24 22:44 Dose: 60 mg Documented By: FAVIAN Fluticasone Propionate (Fluticasone Propionate Nasal 16 Gm [place]) 1 spray NOSTRIL-B BID [facility] Last Admin: 10/23/24 10:14 Dose: 1 spray Documented By: STELLA Fluticasone/Vilanterol (Fluticasone/Vilanterol 100/25 Blst.W.Dev) 1 puff INHALE RDAILY [facility] Last Admin: 10/23/24 07:29 Dose: 1 puff Documented By: JACQUI Gabapentin (Gabapentin 300 Mg Capsule) 300 mg PO BID [facility] Last Admin: 10/23/24 09:43 Dose: 300 mg Documented By: BASILIA Loratadine (Loratadine 10 Mg Tablet) 10 mg PO DAILY PRN PRN Reason: allergies Magnesium Hydroxide (Milk Of Magnesia 30 Ml Oral.Susp) 30 ml PO DAILY PRN PRN Reason: Constipation Magnesium Oxide (Magnesium Oxide 400 Mg Tablet) 400 mg PO BEDTIME [facility] Last Admin: 10/22/24 22:44 Dose: 400 mg Documented By: FAVIAN Melatonin (Melatonin 3 Mg Tablet) 6 mg PO BEDTIME PRN PRN Reason: Insomnia Multivitamins/Vitamin C (Multivitamin Tablet) 1 tab PO DAILY [facility] Last Admin: 10/23/24 09:43 Dose: 1 tab Documented By: BASILIA Ondansetron HCl (Ondansetron Hcl 4 Mg/2 Ml Vial) 4 mg IVPUSH Q8H PRN PRN Reason: Nausea and Vomiting Last Admin: 10/22/24 22:46 Dose: 4 mg Documented By: FAVIAN Pantoprazole Sodium (Pantoprazole Sodium 40 Mg/10 Ml Vial) 40 mg IVPUSH BID@0630,1630 [facility] Last Admin: 10/23/24 05:10 Dose: 40 mg Documented By: FAVIAN Sodium Chloride (0.9 % Sodium Chloride Flush 3 Ml Syringe) 3 ml IVFLUSH QSHIFT [facility] Last Admin: 10/23/24 09:39 Dose: 3 ml Documented By: BASILIA Vitamin D (Cholecalciferol (Vitamin D3) 25 Mcg Tablet) 50 mcg PO DAILY [facility] Last Admin: 10/23/24 09:43 Dose: 50 mcg Documented By: BASILIA Labs 10/22/24 05:32 10/22/24 05:32 Assessment and Plan (1) Bright red rectal bleeding: Status: Acute (2) Abdominal pain: Status: Acute (3) Nausea: Status: Acute Plan 64-year-old female, PMH Perrin's esophagus, EtOH (abstinent 2011), substance use disorder cocaine (abstinent 2010), COPD, lumbar DJD on meloxicam, hidradenitis suppurativa, genital herpes, recent colonoscopy/EGD 10/20 with polypectomy, presenting with BRBPR, admitted with GI bleeding. Acute GI bleed Colonoscopy/EGD with polypectomy 10/20 Dr. Salas Perrin's esophagus Endoscopy revealed irregular EG junction, consistent with Perrin's esophagus (biopsied). Multiple colonic polyps identified status post polypectomy. Small internal hemorrhoids. Presents with GI bleed 2 days post. Possible bleeding post biopsies versus polypectomy versus gastritis induced from meloxicam use. No recurrent episodes of bleeding. PLAN - GI consulted - omeprazole IV b.i.d. - hold meloxicam - hold off DVT prophylaxis - monitor H&H - advance diet to clear liquid diet COPD, no home O2 Patient defers nicotine patch and gum DuoNebs p.r.n. Breo Ellipta HSV genital Last outbreak 1 week prior around the buttocks Valacyclovir p.r.n. Fibromyalgia Continue gabapentin Continue duloxetine Hyperlipidemia Continue statin QUALITY [employer] - VTE: SCDs. Hold heparin in setting of GI bleed - CODE STATUS: Full code - DIET: NPO currently - advance to clear liquid diet DISPOSITION: DISCHARGE TOMORROW IF NO RECURRENT BLEED Total time managing care of this patient today: 35 minutes. Quality Stroke Does the patient have a stroke diagnosis?: No Reason for No Anti-thrombotic by Day Two: Contraindicated VTE Prior VTE?: No VTE Risk Level:: Medical - moderate - high VTE Device Contraindication: N/A - Device Ordered VTE Drug Contraindication: Treatment Not Indicated
[2024-10-24 03:28] VITALS: BP 117/57; PULSE 69; RESP 16; TEMP 36.7; O2SAT 94
[2024-10-24 07:47] VITALS: BP 131/68; PULSE 80; RESP 17; TEMP 36.5; O2SAT 94
[2024-10-24] MEDS: Fluticasone/Vilanterol 100/25 BLST.W.DEV 1 PUFF INHALE (07:47)
[2024-10-24 07:49] VITALS: PULSE 80; RESP 16
[2024-10-24] MEDS: 0.9 % Sodium Chloride Flush 3 ML SYRINGE IVFLUSH (08:30)
[2024-10-24 11:16] VITALS: BP 114/64; PULSE 83; RESP 17; TEMP 36.4; O2SAT 95
--- NOTE | 2024-10-24 13:53 | PM.DS ---
DS: Providers Provider Date of Service: 10/24/24 Date of admission: 10/22/24 03:13 Date of discharge: 10/24/24 Primary care physician: Jared Pulido MD Consults: 10/22/24 03:15 Consult to Gastroenterology Routine Consulting Provider: John Nichols Reason for consultation: Rectal bleeding w clots s/p colonoscopy Has provider been notified: No Attending physician on discharge: Erum Yu DS: Diagnosis Discharge Diagnosis (1) Bright red rectal bleeding: Status: Acute (2) Abdominal pain: Status: Acute (3) Nausea: Status: Acute DS: Summary Hospital Course Hospital Course: Patient is a 64-year-old female with past medical history Perrin's esophagus, alcohol use disorder now sober 2011, substance use disorder with cocaine clean since 2010, tobacco dependence, COPD, degenerative joint disease on meloxicam, GERD, hidradenitis suppurativa last flare 2 months ago, HSV (genital) last outbreak 1 week prior on valacyclovir p.r.n., PTSD/depression, pneumonia, COVID, fibromyalgia, hyperlipidemia was seen in the ED for unexpected rectal bleeding with clots that occurred at 21:30 on 10/21/2024 s/p colonoscopy/ EGD 10/20/2024. The rectal bleeding was preceded by abdominal cramping after eating a small dinner and patient had associated nausea and dry heaves. Patient denied any fever, chills, chest pain or shortness of breath. Patient also reported burping. On arrival to the ED patient had 2 additional episodes of bright red rectal bleeding but no clots. Patient's last colonoscopy was 5 years ago. H/H stable 12.0/34.8, stool positive for occult. Patient underwent a colonoscopy and EGD with Dr. Salas on 10/20/2024 for known Perrin's esophagus and was diagnosed with diverticulosis and Barretts. Patient had 2 polyps removed and pathology is pending. In addition patient was found to have small internal hemorrhoids. Review of report noted no complications during procedure. Patient is not on blood thinners or aspirin but takes meloxiacam for DJD. Patient is coming in for rectal bleeding with a stable H&H and normal CT scan with no indication of active GI bleed. To note, patient had a herpetic flare in the buttocks 1 week ago and those lesions has since resolved. Patient also told that she has not abnormal mole at the top of the gluteal crease in her PCP is referring her to Dermatology for further investigation. Acute GI bleed Colonoscopy/EGD with polypectomy 10/20 Dr. Salas Perrin's esophagus Endoscopy revealed irregular EG junction, consistent with Perrin's esophagus (biopsied). Multiple colonic polyps identified status post polypectomy. Small internal hemorrhoids. Presents with GI bleed 2 days post. Possible bleeding post biopsies versus polypectomy versus gastritis induced from meloxicam use. No recurrent episodes of bleeding. Status at Discharge Functional status at discharge: independent ambulation Overall status at discharge: patient is back to baseline Time Attestation Total time managing care of this patient today: 35 mintues. Discharge Coordination Time (in mins): 15 Quality: Safe Use of Opioids Does Pt have an Active Cancer Diagnosis on the Problem List?: No Quality: Stroke Does the patient have a stroke diagnosis?: No Physical Exam Exam: Exam: General: A&O x3, oriented to time place person and situation, comfortable, no pain Cardiac: S1, S2 auscultated with no S3/4, no MRG. Well perfused. Respiratory: Normal breath sounds auscultated throughout all lung zones, without wheezing, rales. Normal rate. GI/ : No abdominal pain on palpation, no masses or distentions. MSK: Normal ambulation without pain at bony prominences or musculature Neurological: Normal neurological examination on overview, without obvious CN II-XII abnormalities. Vital Signs: Vital Signs: Last Vital Signs Temp 97.6 F 10/24/24 11:16 Pulse 83 10/24/24 11:16 Resp 17 10/24/24 11:16 BP 114/64 10/24/24 11:16 Pulse Ox 95 10/24/24 11:16 O2 Del Method Room Air 10/24/24 11:16 BMI result Body Mass Index 29.3 Discharge Plan Discharge Anticipated Discharge Date/Time: 10/24/24 13:55 Patient Disposition: Home, Self-Care Discharge Diagnosis: Post colonoscopy polypectomy bleeding Referrals: Jared Pulido MD [Primary Care Provider, Internal Medicine] - 1 Week Discharge Medications: No Action atorvastatin 10 mg tablet 10 mg PO BEDTIME meloxicam 15 mg tablet 15 mg PO DAILY PRN (Reason: pain) pantoprazole 20 mg tablet,delayed release (DR/EC) 20 mg PO DAILY@0630 gabapentin 300 mg capsule 300 mg PO BEDTIME fluticasone propionate 50 mcg/actuation spray,suspension 1 spray intranasal BID loratadine 10 mg tablet 10 mg PO DAILY PRN (Reason: allergies) albuterol sulfate 90 mcg/actuation Aero Powdr Breath Act W/Sensor 2 inh INHALATION Q4-6H PRN (Reason: Wheezing) multivitamin Tablet 1 tab PO DAILY cyclobenzaprine 10 mg tablet 10 mg PO TID PRN (Reason: Muscle Spasm) magnesium oxide 500 mg magnesium Tablet 500 mg PO BEDTIME vitamin E [Vitamin E-400] 268 mg (400 unit) Capsule 268 mg PO BEDTIME vitamin B complex [B Complex] Capsule 1 cap PO BEDTIME cholecalciferol (vitamin D3) [Vitamin D3] 25 mcg (1,000 unit) Tablet 50 mcg PO DAILY fluticasone furoate-vilanterol [Breo Ellipta] 100-25 mcg/dose blister with device 1 ea INHALATION DAILY gabapentin 100 mg capsule 300 mg PO DAILY duloxetine 60 mg capsule,delayed release(DR/EC) 60 mg PO BEDTIME Discharge Orders: Discharge Order (Routine); Ordered 10/24/24 Ordered By: Erum Yu Diet: Advance to usual diet Activity on Discharge: As tolerated Stand Alone Forms: Patient Portal Discharge page Print Language: Greenlandic Care Plan Goals: Follow up PCP within 1 week If recurrent bleeding, recontact gastroenterology for outpatient EGD/colonoscopy, unless high volume bleed as per presentation Health Concerns: As above Plan of Treatment: As above. Advanced to regular diet tomorrow Assessment: Active clinical baseline. T and hemodynamically stable for discharge
--- NOTE | 2024-10-24 13:57 | MHC.CM.PN ---
Patient has been medically cleared for dc to home today, self care. Last IMM was addressed on 10/22/2024.
[2024-10-24 15:24] VITALS: BP 124/74; PULSE 80; RESP 17; TEMP 36.4; O2SAT 95
== END 2024-10-24 15:45 | disposition home or self-care (01) | DRG 920 ==
LOC: HO.ED 10-22 00:53 → HO.EDOVER 10-22 03:17 → HO.IMC 10-22 15:22
PROVIDERS: Emergency Medicine; Nurse Practitioner Family; Admitting Provider Student in an Organized Health Care Education/Training Program; Emergency Provider Emergency Medicine; PCP Internal Medicine; Visit Provider Hospitalist
DX: K91.840 Postprocedural hemorrhage of a digestive system organ or structure following a digestive system procedure (principal); K62.5 Hemorrhage of anus and rectum; K22.70 Barrett's esophagus without dysplasia; B00.9 Herpesviral infection, unspecified; M79.7 Fibromyalgia; J44.9 Chronic obstructive pulmonary disease, unspecified; Y84.8 Other medical procedures as the cause of abnormal reaction of the patient, or of later complication, without mention of misadventure at the time of the procedure; A60.00 Herpesviral infection of urogenital system, unspecified; F17.210 Nicotine dependence, cigarettes, uncomplicated; Z71.6 Tobacco abuse counseling; Z79.51 Long term (current) use of inhaled steroids; Z79.899 Other long term (current) drug therapy
CPT/HCPCS: 36415; 74178; 80048; 80053; 82272; 83605; 85025; 86850; 86900; 86901; 94640; 99285; J2405; J2470; J3010; J7120; Q9967

== ENCOUNTER → 2024-10-22 03:13 | Outpatient (BNV) | payer MEDICARE, MEDICAID, SELFPAY | PROVIDERS: Admitting Provider Student in an Organized Health Care Education/Training Program; Emergency Provider Emergency Medicine; PCP Internal Medicine; Visit Provider Nurse Practitioner Family | DX: K62.5 Hemorrhage of anus and rectum (principal); R10.32 Left lower quadrant pain | CPT/HCPCS: 99223; 99499 ==

== ENCOUNTER → 2024-10-22 | Outpatient (BNV) | payer MEDICARE, MEDICAID, SELFPAY | PROVIDERS: Emergency Provider Emergency Medicine; PCP Internal Medicine; Visit Provider Radiology Diagnostic Radiology | DX: K57.30 Diverticulosis of large intestine without perforation or abscess without bleeding (principal) | CPT/HCPCS: 74178 ==